=== PATIENT | female | born 1995 | race Caucasian/White ===

== ENCOUNTER 2017-04-14 16:50 | Emergency (ER) | payer OTHER ==
[2017-04-14 16:56] VITALS: BMI 18.4
--- NOTE | 2017-04-14 17:01 | PDOC ---
Attending Attestation - Resident Resident Name: Yessenia Mancillavanitatamika - HPI HPI: 04/14/17 17:38 31 y/o female here in ED c/o for eval of nausea and vomitting started last night after taking cipro and flagyl, pt went to see her bag press operator doctor who prescribed diflucan, flagyl and cipro, pt took the meds last night and today s c /o nausea with vomitting sos she came in to ED for evaluation - Physicial Exam PE: 04/14/17 17:46 PE: Pt is non toxic appearing, + bs kye CTA, s1s2 regular, + bs abd soft no guarding but pt c/o slight discomfort with palpation on abdominal exam, Pelvic exam pt with curd like white discharge,no cmt tenderness, slight clear discharge from cervix, mild adnexal discomfort - Medical Decision Making 04/14/17 17:49 Pt with vaginal candidiasis, may be having advers reaction to flagyl an cipro with nausea and vomitting, will obtain, cbc, cmp, ua, ucg, iv fluid zofran and reevaluate 04/14/17 19:[address] Morrow to f/u ua and make final disposition, pt stable at present
--- NOTE | 2017-04-14 17:04 | PDOC ---
History of Present Illness - General Chief Complaint: Pain Stated Complaint: STOMACH/HEAD PAIN Time Seen by Provider: 04/14/17 16:58 History Source: Patient - History of Present Illness Initial Comments: 21 year old female without significant PMH presenting with one days of nausea, vomiting, diarrhea, and abdominal pain after antibiotic ingestion. She was recently seen by her It Programmer (Nicki Cohen) on Sunday (04/11/17) for vaginal discharge and and some intra-coital pain. She was given cipro, flagyl, and fluconazole. She took her first dose of Cipro and Flagyl on Sunday night after which she had crampy abdominal pain, nausea, vomiting, and diarrhea. She had a vaginal infection last year for which she received flagyl but did not have any adverse reactions. She denies recent alcohol ingestion and doesn't take any other medications or over the counter supplements with the exception of OCP. She is monogamous, does not use barrier contraception, and denies her partner's sick symptoms. Her PCP is Leigh Alamo. 04/14/17 19:36 Past History - Past Medical History Allergies/Adverse Reactions: Allergies Allergy/AdvReac Type Severity Reaction Status Date / Time No Known Allergies Allergy Verified 04/14/17 16:53 Home Medications: Ambulatory Orders Ciprofloxacin [Cipro (Restricted To Id)] 500 mg PO BID 04/14/17 Fluconazole [Diflucan -] 150 mg PO DAILY #1 tablet 04/14/17 Metronidazole [Flagyl -] 500 mg PO BID 04/14/17 Other medical history: none - Psycho/Social/Smoking Cessation Hx Anxiety: No Suicidal Ideation: No Smoking History: Never smoked Have you smoked in the past 12 months: No Information on smoking cessation initiated: No Hx Alcohol Use: No Drug/Substance Use Hx: No Substance Use Type: None Review of Systems - Review of Systems Constitutional: Yes: Chills, Loss of Appetite. No: Fever, Night Sweats HEENTM: No: Double Vision, Nose Congestion, Throat Swelling Respiratory: No: Cough, Shortness of Breath, Wheezing, Productive cough, Hemoptysis Cardiac (ROS): No: Chest Pain, Edema, Irregular Heart Rate, Lightheadedness, Palpitations ABD/GI: Yes: Diarrhea, Nausea, Poor Appetite, Poor Fluid Intake, Vomiting. No: Abdominal Distended, Constipated : No: Burning, Flank Pain, Hematuria, Incontinence, Urgency Musculoskeletal: No: Joint Swelling, Muscle Pain, Muscle Weakness Integumentary: No: Erythema, Flushing Neurological: Yes: Headache. No: Numbness, Paresthesia *Physical Exam - Vital Signs Last Vital Signs Temp Pulse Resp BP Pulse Ox 97.7 F 86 18 125/91 100 04/14/17 16:53 04/14/17 16:53 04/14/17 16:53 04/14/17 16:53 04/14/17 16:53 - Physical Exam General Appearance: Yes: Nourished, Appropriately Dressed HEENT: positive: DEX, Normal ENT Inspection, Normal Voice. negative: Scleral Icterus (R), Scleral Icterus (L), Pharyngeal Erythema Neck: positive: Normal Thyroid Respiratory/Chest: positive: Lungs Clear, Normal Breath Sounds. negative: Chest Tender, Respiratory Distress, Accessory Muscle Use, Rales, Rhonchi, Stridor, Wheezing Cardiovascular: positive: Regular Rhythm, Regular Rate, S1, S2. negative: Edema , JVD, Murmur Female Pelvic Exam: positive: cervical os closed, normal size ovaries, discharge (white caseous discharge present around the cervix and throughout the vaginal canal), adnexal tenderness (Some very slight right adnexal tenderness), other (no fowl smelling discharge) Gastrointestinal/Abdominal: positive: Normal Bowel Sounds, Tender (slightly tender to deep palpation in epigastrium and lower abdomen bilaterally), Flat, Soft. negative: Organomegaly, Pulsatile Mass Extremity: positive: Normal Capillary Refill, Normal Inspection Neurologic: positive: Fully Oriented, Alert, Normal Mood/Affect Medical Decision Making - Medical Decision Making Healthy patient with what appears to be a vaginal yeast infection presenting with N/V/D after cipro and flagyl ingestion. this is most likely poor reaction to cipro as she has had flagyl in the past. Pelvic exam was only significant for caseous material consistent with vaginal yeast infection. 04/14/17 19:41 Labs within normal limits and UA is not concerning for infection. Patient feeling better after Zofran. Can send home on same regimen and diflucan to take after completing Cipro. *DC/Admit/Observation/Transfer Diagnosis at time of Disposition: Yeast infection of the vagina - Discharge Dispostion Disposition: HOME Condition at time of disposition: Improved Admit: No - Prescriptions Prescriptions: Fluconazole [Diflucan -] 150 mg PO DAILY #1 tablet - Patient Instructions Additional Instructions: You were seen for nausea, vomiting, diarrhea, and crampy abdominal pain. We believe you may have had a non-threatening reaction to the medications. You should continue your antibiotics but make sure to eat plenty of food before swallowing your pills. We have also given you a dose of diflucan to take after you are finished your antibiotics. Please return to the ED if your nausea and vomiting do not get better after a few days. - Attestations Physician Attestion: 04/14/17 19:48 I, Dr. Ashli Mancilla, attest that this document has been prepared under my direction and personally reviewed by me in its entirety. I further attest, that it accurately reflects all work, treatment, procedures and medical decision -making performed by me.
[2017-04-14] MEDS ORDERED: ONDANSETRON 4 MG TABLET PO ONE (17:40)
[2017-04-14] MEDS ORDERED: ONDANSETRON 8 MG TABLET (FP) PO ONE (17:51)
[2017-04-14 18:10] LABS: MCH 28.7 pg (25.7-33.7); MEAN CELL VOLUME 86.8 fl (80-96); MEAN PLT VOLUME 8.4 fl (7.5-11.1); PLATELET COUNT 214 K/MM3 (134-434); RDW 13.1 % (11.6-15.6); WHITE BLOOD COUNT 6.6 K/mm3 (4.0-10.0)
[2017-04-14 18:32] LABS: ALBUMIN 3.8 g/dl (3.4-5.0); ANION GAP 8 (8-16); BILIRUBIN,TOTAL 0.4 mg/dL (0.2-1.0); CALCIUM 8.5 mg/dL (8.5-10.1); CO2 25 mmol/L (21-32); CREATININE 0.7 mg/dL (0.55-1.02); GLUCOSE,RANDOM 116 mg/dL (74-106); SGOT/AST 13 U/L (15-37); SGPT/ALT 10 U/L (12-78); TOT PROT 7.2 g/dl (6.4-8.2)
[2017-04-14 18:33] LABS: ALK PHOS 35 U/L (45-117)
[2017-04-14 18:57] LABS: URINE APPEARANCE CLEAR; URINE BILIRUBIN NEGATIVE (NEGATIVE); URINE COLOR STRAW; URINE GLUCOSE (UA) NEGATIVE (NEGATIVE); URINE KETONE TRACE (NEGATIVE); URINE LEUK ESTERASE NEGATIVE (NEGATIVE); URINE NITRITE NEGATIVE (NEGATIVE); URINE PROTEIN NEGATIVE (NEGATIVE); URINE UROBILINOGEN NEGATIVE E.U./dl (0.2-1.0)
[2017-04-14 19:00] LABS: URINE BLOOD 1+ (NEGATIVE)
[2017-04-14 19:06] LABS: URINE RBC <1 /hpf (0-3); URINE WBC <1 /hpf (3-5)
[2017-04-14 19:28] VITALS: BP 111/77; PULSE 70; TEMP 98.5
[2017-04-14] MEDS ORDERED: ACETAMINOPHEN 325 MG TABLET (FP) ONE (19:30)
[2017-04-14] MEDS ORDERED: ACETAMINOPHEN 325 MG TABLET (FP) PO ONE (19:47)
== END 2017-04-14 19:56 | disposition home or self-care (01) ==
LOC: EDBD 16:50 → JER 16:50
DX: B37.3 Candidiasis of vulva and vagina (principal)
CPT/HCPCS: 36415; 80053; 81003; 81015; 84703; 85027; 87491; 87591; 99283-25

== ENCOUNTER 2017-12-06 12:22 | Emergency (ER) | payer OTHER ==
[2017-12-06 12:27] VITALS: BMI 18.4
[2017-12-06] MEDS ORDERED: ACETAMINOPHEN 325 MG TABLET (FP) PO ONE (12:33)
--- NOTE | 2017-12-06 12:38 | PDOC ---
History of Present Illness - General Chief Complaint: Cold Symptoms Stated Complaint: COUGH, SORE THROAT,HEADACHE Time Seen by Provider: 12/06/17 12:30 History Source: Patient Exam Limitations: No Limitations - History of Present Illness Initial Comments: 12/06/17 12:34 22 y/o female with congestion and cough for 2 days presents with headache this morning. Denies headaches in past. No the worse headache, but pain mostly on right side of head. Denies fall or trauma. No weakness or numbness. No fever or chills. Taking Ibuprofen and DayQil. Patient states she has not traveled and no neck pain as well. No body aches or chills. No SOB or chest pain. No N/V/D/C. Denies aura as well. Associated Symptoms: reports: cough, headaches. denies: chest pain, fever/ chills, nausea/vomiting, weakness Past History - Past Medical History Allergies/Adverse Reactions: Allergies Allergy/AdvReac Type Severity Reaction Status Date / Time No Known Allergies Allergy Verified 12/06/17 12:24 Home Medications: Ambulatory Orders Amoxicillin - [Amoxicillin 875mg Tablet -] 875 mg PO BID #20 tablet 12/06/17 COPD: No - Suicide/Smoking/Psychosocial Hx Smoking History: Never smoked Have you smoked in the past 12 months: No Hx Alcohol Use: No Drug/Substance Use Hx: No Substance Use Type: None Review of Systems - Review of Systems Able to Perform ROS?: Yes Is the patient limited Latvian proficient: No Constitutional: No: Chills, Fever Respiratory: Yes: Cough. No: Shortness of Breath, Productive cough Cardiac (ROS): No: Chest Pain ABD/GI: No: Nausea, Vomiting Musculoskeletal: No: Muscle Pain Neurological: Yes: Headache. No: Numbness All Other Systems: Reviewed and Negative *Physical Exam - Vital Signs Last Vital Signs Temp Pulse Resp BP Pulse Ox 0/0 12/06/17 12:23 - Physical Exam General Appearance: Yes: Nourished, Appropriately Dressed. No: Apparent Distress HEENT: positive: EOMI, DEX, Normal ENT Inspection, Normal Voice, Pharynx Normal. negative: Pharyngeal Erythema, Sinus Tenderness Neck: positive: Trachea midline, Normal Thyroid, Supple (no spinous process tenderness, no meningeal signs noted). negative: Tender, Rigid, Carotid bruit Respiratory/Chest: positive: Lungs Clear, Normal Breath Sounds. negative: Chest Tender, Respiratory Distress Cardiovascular: positive: Regular Rhythm, Regular Rate, S1, S2. negative: Edema , JVD, Murmur Vascular Pulses: Femoral (R): 4+, Femoral (L): 4+, Carotid (R): 4+, Carotid (L) : 4+, Dorsalis-Pedis (R): 4+, Doralis-Pedis (L): 4+ Gastrointestinal/Abdominal: positive: Normal Bowel Sounds, Flat, Soft. negative : Tender, Organomegaly, Pulsatile Mass Lymphatic: negative: Adenopathy, Tenderness, Other Musculoskeletal: positive: Normal Inspection. negative: CVA Tenderness Extremity: positive: Normal Capillary Refill, Normal Inspection, Normal Range of Motion Integumentary: positive: Normal Color, Dry, Warm Neurologic: positive: golf stud riveter II-XII NML intact (strength 5+/5 b/l in UE and LE, no focal deficits noted), Fully Oriented, Alert, Normal Mood/Affect, Normal Response, Motor Strength 5/5 ED Treatment Course - ADDITIONAL ORDERS Additional order review: 12/06/17 12:41 Headache, congestion, appears to be possible sinus will obtain CT head. 12/06/17 13:51 CT head negative Will treat for sinus headache Amoxicillin, Tylenol If worsen return to ER *DC/Admit/Observation/Transfer Diagnosis at time of Disposition: Sinus headache - Discharge Dispostion Disposition: HOME Condition at time of disposition: Stable Admit: No - Referrals - Patient Instructions Printed Discharge Instructions: DI for Sinusitis Additional Instructions: Fluids, rest, Motrin Amoxicillin 875 mg 2x/day for 10 days If worsen return to ER - Post Discharge Activity
[2017-12-06 12:41] VITALS: BP 112/70; PULSE 86; TEMP 98.3
== END 2017-12-06 13:58 | disposition home or self-care (01) ==
LOC: FER 12:22
DX: G44.89 Other headache syndrome (principal)
CPT/HCPCS: 70450-TC; 84703; 99282-25

== ENCOUNTER 2020-06-27 10:31 | Emergency (ER) | payer OTHER ==
[2020-06-27 10:47] VITALS: BP 120/79; PULSE 16; TEMP 97.7; BMI 18.6
--- OUTSIDE RECORDS SUMMARY | 2020-06-27 10:48 | XMS ---
:1995 Author Organization [facility] Support Name Relationship Address Phone [employer] Unavailable [address] [place] [address] TAYLER SALMON MOTHER [address] [place] [address] Re-disclosure Warning The records that you are about to access may contain information from federally- assisted alcohol or drug abuse programs. If such information is present, then the following federally mandated warning applies: This information has been disclosed to you from records protected by federal confidentiality rules (42 CFR part 2). The federal rules prohibit you from making any further disclosure of this information unless further disclosure is expressly permitted by the written consent of the person to whom it pertains or as otherwise permitted by 42 CFR part 2. A general authorization for the release of medical or other information is NOT sufficient for this purpose. The Federal rules restrict any use of the information to criminally investigate or prosecute any alcohol or drug abuse patient.The records that you are about to access may contain highly sensitive health information, the redisclosure of which is protected by Article 27-F of the [facility] Public Health law. If you continue you may haveaccess to information: Regarding HIV / AIDS; Provided by facilities licensed or operated by the [facility] Office of Mental Health; or Provided by the [facility] Office for People With Developmental Disabilities. If such information is present, then the following [facility] mandated warning applies: This information has been disclosed to you from confidential records which are protected by state law. State law prohibits you from making any further disclosure of this information without the specific written consent of the person to whom it pertains, or as otherwise permitted by law. Any unauthorized further disclosure in violation of state law may result in a fine or penitentiary sentence or both. A general authorization for the release of medical or other information is NOT sufficient authorization for further disclosure. Insurance Providers Payer name Policy type Policy ID Covered Covered republican's Policy P dai / Coverage republican ID relationship to Tse Inf ormation type tse [id number] SP [id number] 200 ESSENTIAL PLAN 1 2 Dental [id number] S [id number] Dentaquest Essential Plan 4 Rian Vision [id number] S [id number] Essential Plan 3 4 Rian Vision [id number] S [id number] MKD Dental [id number] S [id number] 200 Dentaquest MKD Medicaid [id number] S [id number] Regular Clinic Visit [facility] [id number] S [id number] [place] Medicaid [facility] [id number] S [id number] HMO Essential Plan 4 Problems, Conditions, and Diagnoses Code Display Name Description Problem Type Effective Data Sour ce(s) Dates R63.6 Underweight Underweight Diagnosis 12/06/2018 ALDEN (Mo unt 04:05:39 PM [facility]) Z23 Encounter for Encounter for Diagnosis 12/06/2018 ANUP (Janell immunization immunization 04:05:39 PM [facility]) Z71.2 Person consulting Person consulting Diagnosis 12/06/2018 ANUP (Janell for explanation of for explanation 04:05:39 PM Mihir examination or of exam or test EST [facility] test findings findings [facility])
[2020-06-27] MEDS ORDERED: FLUCONAZOLE 150 MG TABLET PO ONE ×2 (11:26→11:27)
--- NOTE | 2020-06-27 11:30 | PDOC ---
History of Present Illness - General Chief Complaint: Pain Stated Complaint: PAIN Time Seen by Provider: 06/27/20 10:52 History Source: Patient Exam Limitations: Clinical Condition - History of Present Illness Initial Comments: 06/27/20 11:31 Patient with no significant past medical history present with complaint of 3-day history of right vulvar irritation and burning sensation with vaginal discharge for 3 days. Patient reports sexually active but has not had any symptoms over 2 months. Patient reported using condoms every time with sex. Denies contraceptive use. Denies nausea, vomiting, abdominal pain, fever, chills, vaginal bleeding. LMP 2 weeks ago. Denies any other symptoms Is this a multiple visit Asthma Patient?: No Timing/Duration: other (3 days) Past History - Medical History Allergies/Adverse Reactions: Allergies Allergy/AdvReac Type Severity Reaction Status Date / Time No Known Allergies Allergy Verified 12/06/17 12:24 Home Medications: Ambulatory Orders Amoxicillin - [Amoxicillin 875mg Tablet -] 875 mg PO BID #20 tablet 12/06/17 Valacyclovir HCl [Valtrex -] 1,000 mg PO BID 5 Days #10 tablet 06/27/20 metroNIDAZOLE [Flagyl -] 500 mg PO DAILY #14 tablet 06/27/20 COPD: No - Reproductive History Is Patient Now?: No - Psycho-Social/Smoking History Smoking History: Never smoked Have you smoked in the past 12 months: No - Substance Abuse Hx (Audit-C & DAST Scrn) How often the patient has a drink containing alcohol: Never Score: In Men: 4 or > Positive; In Women: 3 or > Positive: 0 Screen Result (Pos requires Nsg. Audit-10AR): Negative In the last yr the pt used illegal drug/Rx for NonMed reason: No Score: Yes response is considered Positive: 0 Screen Result (Positive result requires Nsg. DAST-10): Negative Review of Systems - Review of Systems Able to Perform ROS?: Yes Is the patient limited Uzbek proficient: No Constitutional: No: Chills, Fever, Malaise HEENTM: No: Symptoms Reported, See HPI, Eye Pain, Blurred Vision, Tearing, Re cent change in vision, Double Vision, Cataracts, Ear Pain, Ocular Prothesis, Ear Discharge, Nose Pain, Nose Congestion, Tinnitus, Nose Bleeding, Hearing Loss, Throat Pain, Throat Swelling, Mouth Pain, Dental Problems, Difficulty Swallowing, Mouth Swelling, Other Respiratory: No: Symptoms reported, See HPI, Cough, Orthopnea, Shortness of Breath, SOB with Exertion, SOB at Rest, Stridor, Wheezing, Productive cough, Hemoptysis, Other Cardiac (ROS): No: Symptoms Reported, See HPI, Chest Pain, Edema, Irregular Heart Rate, Lightheadedness, Palpitations, Syncope, Chest Tightness, Other ABD/GI: No: Symptoms Reported, See HPI, Nausea, Vomiting, Abdominal cramping : Yes: Symptoms Reported, See HPI, Discharge, Lesions, Other (vulva irritation). No: Burning, Dysuria, Frequency, Flank Pain, Urgency Musculoskeletal: No: Symptoms Reported Integumentary: Yes: Symptoms Reported, See HPI, Rash (vulva area) Neurological: No: Symptoms reported, Headache, Dizziness All Other Systems: Reviewed and Negative *Physical Exam - Vital Signs Last Vital Signs Temp Pulse Resp BP Pulse Ox 97.7 F 16 L 60 H 120/79 100 06/27/20 10:39 06/27/20 10:39 06/27/20 10:39 06/27/20 10:39 06/27/20 10:39 - Physical Exam General Appearance: Yes: Nourished, Appropriately Dressed. No: Apparent Dis tress HEENT: positive: Normal ENT Inspection Respiratory/Chest: negative: Respiratory Distress, Accessory Muscle Use Cardiovascular: positive: Regular Rhythm, Regular Rate Female Pelvic Exam: positive: cervical os closed, other (1 mm area of cut to the right aspect of labial with mild erythema to right aspect of vulvar consistent with herpes dermatitis. Moderate amount of thick yellow discharge in vaginal vault. No cervical motion tenderness. No bleeding in vault.). negative: adnexal tenderness, vaginal bleeding Gastrointestinal/Abdominal: positive: Normal Bowel Sounds, Flat. negative: Tender, Distended, Guarding, Rebound Musculoskeletal: positive: Normal Inspection Extremity: positive: Normal Inspection, Normal Range of Motion Integumentary: positive: Normal Color Neurologic: positive: Fully Oriented, Alert, Normal Mood/Affect, Normal Response, Motor Strength 5/5 Medical Decision Making - Medical Decision Making 06/27/20 11:32 Patient with no significant past medical history present with complaint of 3-day history of right vulvar irritation and burning sensation with vaginal discharge for 3 days. Patient reports sexually active but has not had any symptoms over 2 months. Patient reported using condoms every time with sex. Denies contraceptive use. Denies nausea, vomiting, abdominal pain, fever, chills, vaginal bleeding. LMP 2 weeks ago. Denies any other symptoms Exam significant for 1 mm area of cut to the right aspect of labial with mild erythema to right aspect of vulvar consistent with herpes dermatitis. Moderate amount of thick yellow discharge in vaginal vault. No cervical motion tenderness. No bleeding in vault. No abdominal tenderness. HSV lab with lesion swab sent for herpes lab. Genital culture of vaginal discharge sent. GC and chlamydia test sent. Patient treated empirically on Diflucan 150 mg given in the ER here and will be discharged home on Flagyl 5 mg twice daily for bacterial vaginosis and Valtrex for herpes dermatitis with follow-up with BANQUET DIRECTOR Discharge - Discharge Information Problems reviewed: Yes Clinical Impression/Diagnosis: Yeast infection of the vagina, Vulvar rash Vaginitis Qualifiers: Chronicity: acute Qualified Code(s): N76.0 - Acute vaginitis Condition: Stable Disposition: HOME - Admission No - Additional Discharge Information Prescriptions: metroNIDAZOLE [Flagyl -] 500 mg PO DAILY #14 tablet Valacyclovir HCl [Valtrex -] 1,000 mg PO BID 5 Days #10 tablet - Follow up/Referral Referrals: Ju Bray DO [Primary Care Provider] - - Patient Discharge Instructions Patient Printed Discharge Instructions: DI for Genital Herpes, DI for Vaginal Discharge Additional Instructions: Your rash in the skin looks like herpes which sample was taken to confirm. You have been treated for yeast infection and bacterial vaginosis for vaginal discharge. Follow-up with your BANQUET DIRECTOR. You will be contacted in a few days with lab result - Post Discharge Activity
== END 2020-06-27 11:34 | disposition home or self-care (01) ==
LOC: JERFT 10:31 → JER 10:31 → JERFT 11:34
DX: B37.3 Candidiasis of vulva and vagina (principal)
CPT/HCPCS: 36415; 87070; 87077; 87205; 87255; 87491; 87591; 87661; 99283-25

== ENCOUNTER 2020-12-17 10:56 | Emergency (ER) | payer OTHER ==
[2020-12-17 11:01] VITALS: BP 153/93; PULSE 50; TEMP 98.2; BMI 17.9
== END 2020-12-17 12:00 | disposition home or self-care (01) ==
LOC: FER 10:56
DX: B35.4 Tinea corporis (principal)
CPT/HCPCS: 99283-25

== ENCOUNTER 2022-09-17 00:13 | Emergency (ER) | payer OTHER ==
[2022-09-17 00:19] VITALS: BP 107/77; PULSE 127; RESP 20; TEMP 97.3; BMI 18.3
[2022-09-17] MEDS ORDERED: IBUPROFEN 600 MG TABLET (FP) PO ONE ×2 (00:54→01:01)
== END 2022-09-17 04:08 | disposition home or self-care (01) ==
LOC: JER 00:13
DX: N60.02 Solitary cyst of left breast (principal)
CPT/HCPCS: 76604; 93005; 93010; 99284-25